=== PATIENT | female | born 1990 | race Caucasian/White ===

== ENCOUNTER → 2020-04-21 | Outpatient (CLI) | payer OTHER ==
[~2020-04-21] MED LIST: Zofran Odt8 MG SL
== END ==
LOC: LAB 19:09 → LAB SHORT 19:09
DX: B37.3 Candidiasis of vulva and vagina (principal)
CPT/HCPCS: 87070; 87205

== ENCOUNTER → 2020-05-06 | Outpatient (CLI) | payer OTHER ==
[~2020-05-06] MED LIST changes: +ACET500 PO; +Colace100 MG; +IBUP800 PO; +PRENATAL TABLE1 EAC2 PO
== END ==
LOC: LAB 18:54 → LAB SHORT 18:54
DX: Z34.91 Encounter for supervision of normal pregnancy, unspecified, first trimester (principal)
CPT/HCPCS: 87081; 87150

== ENCOUNTER 2020-05-31 01:53 | Inpatient (IN) | payer OTHER ==
[~2020-05-31] VITALS: Ht 170.2 cm; Wt 80.7 kg
[~2020-05-31 01:53] MED LIST changes: -ACET500 PO; -Colace100 MG; -IBUP800 PO; -PRENATAL TABLE1 EAC2 PO
[2020-05-31 04:41] LABS: BASOPHILS ABSOLUTE AUTO 0.04 K/mm3 (0.00-0.23); BASOPHILS PERCENT AUTO 0 % (0-2); EOSINOPHILS ABSOLUTE AUTO 0.12 K/mm3 (0.00-0.68); EOSINOPHILS PERCENT AUTO 1 % (0-6); Hemoglobin 10.9 g/dL (11.5-16.0); IMMATURE GRAN ABSOLUTE AUTO 0.07 K/mm3 (0.00-0.10); IMMATURE GRAN PERCENT AUTO 1 % (0-1); LYMPHOCYTES ABSOLUTE AUTO 1.85 K/mm3 (0.84-5.20); LYMPHOCYTES PERCENT AUTO 14 % (21-46); MONOCYTES PERCENT AUTO 10 % (4-13); Mean Corpuscular HGB 29.5 pg (26.0-34.0); Mean Corpuscular Volume 89 fL (80-100); Mean Platelet Volume 11.5 fL (9.1-12.4); NEUTROPHILS PERCENT AUTO 75 % (41-73); Platelet Count 158 K/mm3 (150-400); RDW Coefficient Variation 13.4 % (11.7-14.2); White Blood Cell Count 13.48 K/mm3 (4.00-11.30)
[2020-05-31 04:46] LABS: Influenza A, PCR Negative (NEGATIVE); Influenza B, PCR Negative (NEGATIVE); Resp Syncytial Virus, PCR Negative (NEGATIVE); SARS-Cov-2 (COVID-19) PCR, MMC Negative (NEGATIVE)
[2020-05-31 17:52] LABS: PCO2 Cord - Venous 43.5 mmHg (40-50); PO2 Cord - Venous 25.1 mmHg (28-32); pH Umbilical Cord - Venous 7.28 (7.26-7.35)
[2020-06-01 06:08] LABS: Hematocrit 29.8 % (33.0-51.0); Hemoglobin 9.7 g/dL (11.5-16.0); Mean Corpuscular HGB 29.4 pg (26.0-34.0); Mean Corpuscular HGB Conc 32.6 g/dL (31.5-36.5); Mean Corpuscular Volume 90 fL (80-100); Mean Platelet Volume 11.7 fL (9.1-12.4); Platelet Count 119 K/mm3 (150-400); RDW Coefficient Variation 13.8 % (11.7-14.2); RDW Standard Deviation 45.1 fL (35.1-46.3); White Blood Cell Count 12.07 K/mm3 (4.00-11.30)
--- NOTE | 2020-06-01 14:02 | NUR ---
RN ROUNDED TO HELP W/ . PT STATES AND LATCHING HAS GONE WELL, DENIES LACTHING PAIN AT THIS TIME. TALKED W/ PT ABOUT CORRECT POSITIONING/LATCHING, NIPPLE SHAPE AFTER FEEDS, AND SUPPLY AND DEMAND OF BREASTMILK. PT VERBALIZED UNDERSTANDING, DENIES QUESTIONS OR CONCERNS. FURTHER SUPPORT OFFERED IF PT DESIRES.
[2020-06-01] MEDS ORDERED: IBUP800 PO (18:06)
[2020-06-01] MEDS ORDERED: Colace100 MG (18:07)
[2020-06-01] MEDS ORDERED: ACET500 PO (18:07)
[2020-06-01] MEDS ORDERED: PRENATAL TABLE1 EAC2 PO (18:08)
--- NOTE | 2020-06-01 19:47 | NUR ---
RN gave and reviewed DC instructions with patient and S.O.. Pt verbalized understanding and denies any further wuestions or concerns at this time.
== END 2020-06-01 19:30 | disposition home or self-care (01) | DRG 768 ==
LOC: OBS 01:53 → BC 02:32 → OBS 03:40 → BC 03:48
PROVIDERS: Family Medicine; ADMIT Family Medicine
PROC: 10E0XZZ Delivery of Products of Conception, External Approach (ICD-10-PCS; principal; 2020-05-31)
PROC: 0DQR0ZZ Repair Anal Sphincter, Open Approach (ICD-10-PCS; 2020-05-31)
PROC: 00HU33Z Insertion of Infusion Device into Spinal Canal, Percutaneous Approach (ICD-10-PCS; 2020-05-31)
PROC: 3E0R3BZ Introduction of Anesthetic Agent into Spinal Canal, Percutaneous Approach (ICD-10-PCS; 2020-05-31)
PROC: 10907ZC Drainage of Amniotic Fluid, Therapeutic from Products of Conception, Via Natural or Artificial Opening (ICD-10-PCS; 2020-05-31)
DX: O36.63X0 Maternal care for excessive fetal growth, third trimester, not applicable or unspecified (principal); Z37.0 Single live birth; O70.20 Third degree perineal laceration during delivery, unspecified; Z3A.39 39 weeks gestation of pregnancy; Z20.828 Contact with and (suspected) exposure to other viral communicable diseases; Z87.891 Personal history of nicotine dependence
CPT/HCPCS: 0241U; 36415; 51702; 59025; 82803; 85025; 85027; 86850; 86900; 86901; A9270; J0690; J1885; J2001; J2405; J2590; J3010; J7120

== ENCOUNTER → 2020-08-05 | Outpatient (CLI) | payer OTHER ==
[~2020-08-05] MED LIST changes: +ACET500 PO; +Colace100 MG; +IBUP800 PO; +PRENATAL TABLE1 EAC2 PO
== END ==
LOC: LAB SHORT 14:40 → PLD 14:40
DX: N76.0 Acute vaginitis (principal)
CPT/HCPCS: 87070; 87205